=== PATIENT | female | born 1990 | race Caucasian/White ===

== ENCOUNTER 2021-07-22 11:11 | Emergency (ER) | payer OTHER, MEDICAID, SELFPAY ==
[2021-07-22 11:25] VITALS: BP 140/73; PULSE 68; RESP 18; TEMP 36.9; O2SAT 100; BMI 22.8
--- NOTE | 2021-07-22 11:28 | ED_ITS ---
HPI - Nausea/Vomiting/Diarrhea General Chief complaint: Nausea/Vomiting/Diarrhea Stated complaint: , extreme nausea and cramping Time Seen by Provider: 07/22/21 11:18 Source: patient Mode of arrival: Ambulatory History of Present Illness HPI Narrative: 30-year-old at approximately 7 weeks EGA here for evaluation of nausea and cramping. No vaginal bleeding. Has had symptoms since the onset of this . No nausea medication at home. Attempted to smoke some marijuana earlier today to see this would help the nausea but it has not. Has an appointment scheduled with OB in a couple weeks from now. No fevers Related Data Previous Rx's Medication Instructions Recorded doxylamine 10 mg-pyridoxine (vit 2 tcp PO SEE INSTRUCTIONS #30 tab 01/26/16 B6) 10 mg tablet,delayed release (Diclegis) ondansetron 4 mg disintegrating 4 mg PO Q6-8H PRN #20 tab 07/22/21 tablet Allergies Allergy/AdvReac Type Severity Reaction Status Date / Time No Known Drug Allergies Allergy Verified 07/22/21 11:24 Review of Systems Constitutional Constitutional: Reports system reviewed and no additional complaints, except as documented Gastrointestinal Gastrointestinal: Reports as per HPI and Reports system reviewed and no additional complaints, except as documented Genitourinary Genitourinary: Reports system reviewed and no additional complaints, except as documented and Reports as per HPI Integumentary/Breasts Skin/Breast: Reports system reviewed and no additional complaints, except as doc umented Neurologic Neurologic: Reports system reviewed and no additional complaints, except as documented Hematologic/Lymphatic On Anticoagulants: No Patient History Medical History Anxiety Social History Smoking Status: Never smoker Smoking Status: Never smoker alcohol intake frequency: 0-2 drinks per day Substance Use Type: marijuana Exam Initial Vital Signs Initial Vital Signs: Vital Signs Temperature 98.4 F 07/22/21 11:25 Pulse Rate 68 07/22/21 11:25 Respiratory Rate 18 07/22/21 11:25 Blood Pressure 140/73 07/22/21 11:25 Pulse Oximetry 100 07/22/21 11:25 HENMT Head: normal to inspection and normocephalic Resp Effort & Inspection: normal respiratory effort Auscultation: clear to auscultation bilaterally Cardio Rate: regular rate Rhythm: regular rhythm GI Inspection: normal to inspection Palpation: soft and No tender Skin General: no rashes or lesions noted Neuro General: patient alert, patient awake, patient oriented x3 and moves all extremities Extrem General: normal to inspection and capillary refill normal Psych Appearance: grossly normal and well kempt Course Orders Ordered: Discontinued Medications Sodium Chloride (Normal Saline 0.9%) 1,000 mls @ 1,000 mls/hr IV BOLUS ONE Stop: 07/22/21 12:18 Last Infusion: 07/22/21 13:32 Dose: 0 mls/hr Documented by: Admin: 07/22/21 11:36 Dose: 1,000 mls/hr Documented by: DYAN Ondansetron HCl (Ondansetron 4 Mg/2 Ml Inj) 4 mg IV NOW ONE Stop: 07/22/21 11:24 Last Admin: 07/22/21 11:36 Dose: 4 mg Documented by: DYAN Vital Signs Vital signs: Vital Signs - 8 hr 07/22/21 11:25 Temperature 98.4 F Pulse Rate 68 Respiratory Rate 18 Blood Pressure 140/73 Pulse Oximetry 100 MDM - Nausea/Vomiting/Diarrhea Lab Data Result diagrams: 07/22/21 12:02 07/22/21 12:02 Labs: Lab Results 07/22/21 07/22/21 Range/Units 12:02 12:02 WBC 9.5 (4.5-11.0) X10^3/uL RBC 3.92 L (4.0-5.2) X10^6/uL Hgb 11.7 L (12.0-16.0) g/dL Hct 35.2 L (36-46) % MCV 89.9 (80-100) fL MCH 29.9 (26-34) PG MCHC 33.3 (30-36) % RDW 12.4 (11.6-14.8) % Plt Count 147 L (150-400) X10^3/uL Neut % (Auto) 74.3 (50-75) % Lymph % (Auto) 18.4 L (25-40) % Benzie % (Auto) 5.9 (3-14) % Eos % (Auto) 1.1 L (2-4) % Baso % (Auto) 0.3 (0-2) % Neut # (Auto) 7100 H (3307-2995) /uL Lymph # (Auto) 1700 (3193-4064) /uL Benzie # (Auto) 600 (0-900) /uL Eos # (Auto) 100 (0-450) /uL Baso # (Auto) 0 (0-100) /uL Sodium 136 L (137-145) mmol/L Potassium 4.1 (3.4-5.1) mmol/L Chloride 107 (98-107) mmol/L Carbon Dioxide 22 (22-32) mmol/L BUN 9 (7-17) mg/dL Creatinine 0.55 (0.52-1.04) mg/dL Estimated GFR > 60.0 (>60) mL/min BUN/Creatinine Ratio 16.4 (6-22) Glucose 113 H (70-100) mg/dL Calcium 8.7 (8.4-10.2) mg/dL Point of Care Testing Test Results Positive Urine Dip Bedside Urine Glucose Negative Bedside Urine Bilirubin - Negative Bedside Urine Ketone - Negative Urine Specific [place] 1.015 Bedside Urine Occult Blood - Negative Bedside Urine pH 6.0 Bedside Urine Protein - Negative Bedside Urine Urobilinogen - Negative Bedside Urine Nitrite - Negative Bedside Urine Leukocytes - Negative Esterase MDM Narrative Medical decision making narrative: Patient stated that she did feel better after the treatment provided here in the emergency department. She was able to tolerate oral intake. She has an ap pointment though be scheduled. Will send home with nausea medication. She was given return precautions. She expressed understanding and agreement. Discharge Plan Departure Patient Disposition: Home Clinical Impression: Vomiting affecting Instructions: DI for Vomiting -- Adult Activity Restrictions/Additional Instructions: Be sure to increase your fluid intake and eat a bland diet. Keep all of your scheduled medical appointments to include your OB appointment coming up next tue. Return to the emergency department for any new or worsening symptoms. Prescriptions: New ondansetron 4 mg tablet,disintegrating 4 mg PO Q6-8H PRN (Reason: nausea and vomiting) Qty: 20 0RF No Action doxylamine-pyridoxine (vit B6) [Diclegis] 10 MG/10 MG tablet,delayed release (DR/EC) 2 tcp PO SEE INSTRUCTIONS Qty: 30 0RF Stand Alone Forms: Work Release Note
[2021-07-22] MEDS: SODIUM CHLORIDE 0.9% 1,000 ML 1000 ML IV (11:36)
[2021-07-22] MEDS: ONDANSETRON 4 MG/2 ML INJ IV (11:36)
[2021-07-22 12:00] VITALS: BP 112/55; PULSE 55; RESP 17; O2SAT 99
[2021-07-22 12:11] LABS: Add Manual Diff / Slide Review NO; Basophils Absolute Auto 0 /uL (0-100); Basophils Percent Auto 0.3 % (0-2); Eosinophils Absolute Auto 100 /uL (0-450); Eosinophils Percent Auto 1.1 % (2-4); Hematocrit 35.2 % (36-46); Hemoglobin 11.7 g/dL (12.0-16.0); Lymphocytes Absolute Auto 1700 /uL (1100-4500); Lymphocytes Percent Auto 18.4 % (25-40); Mean Corpuscular HGB Conc 33.3 % (30-36); Mean Corpuscular Hemoglobin 29.9 PG (26-34); Mean Corpuscular Volume 89.9 fL (80-100); Monocytes Absolute Auto 600 /uL (0-900); Monocytes Percent Auto 5.9 % (3-14); Neutrophils Absolute Auto 7100 /uL (1500-7000); Neutrophils Percent Auto 74.3 % (50-75); Platelet Count 147 X10^3/uL (150-400); Red Blood Cell Count 3.92 X10^6/uL (4.0-5.2); Red Cell Distribution Width 12.4 % (11.6-14.8); White Blood Cell Count 9.5 X10^3/uL (4.5-11.0)
[2021-07-22 12:21] LABS: BUN Creatinine Ratio 16.4 (6-22); Blood Urea Nitrogen 9 mg/dL (7-17); Calcium 8.7 mg/dL (8.4-10.2); Carbon Dioxide 22 mmol/L (22-32); Chloride 107 mmol/L (98-107); Estimated Glomerular Filt Rate > 60.0 mL/min (>60); Glucose 113 mg/dL (70-100); HEMOLYSIS < 15 (0-50); Potassium 4.1 mmol/L (3.4-5.1); Sodium 136 mmol/L (137-145)
[2021-07-22 13:00] VITALS: BP 116/64; PULSE 58; RESP 20; O2SAT 100
--- NOTE | 2021-07-22 13:48 | PC.NURSE ---
Patient reports history of CHF, diabetes, and foot neuropathy. He has been feeling sick for about one week. Reports nausea, vomiting, and fever. Hx of diabetic foot ulcers. Two open wounds on his left foot are noted and cultured. Wound on dorsal side of left food is black and weeping.
[2021-07-22 14:04] VITALS: BP 112/58; PULSE 63; RESP 24; O2SAT 100
== END 2021-07-22 13:40 | disposition home or self-care (01) ==
PROVIDERS: Emergency Provider Emergency Medicine
DX: O21.9 Vomiting of pregnancy, unspecified (principal); O26.891 Other specified pregnancy related conditions, first trimester; R10.9 Unspecified abdominal pain; Z3A.01 Less than 8 weeks gestation of pregnancy
CPT/HCPCS: 36415; 80048; 81003; 81025; 85025; 96361; 96374; 99284; J2405

== ENCOUNTER 2021-08-04 17:51 | Emergency (ER) | payer OTHER, MEDICAID, SELFPAY ==
[2021-08-04 18:48] VITALS: BP 116/57; PULSE 62; RESP 16; TEMP 37.1; O2SAT 99
[2021-08-04] MEDS: ONDANSETRON 4 MG ODT SL (18:56)
--- NOTE | 2021-08-04 23:48 | PC.NURSE ---
Attempted to call pt's cell phone to come in. No answer
--- NOTE | 2021-08-04 23:56 | PC.NURSE ---
No answer again to come to beater engineer helper to get a room.
== END 2021-08-04 23:58 | disposition left against medical advice (07) ==
PROVIDERS: Emergency Provider Emergency Medicine
DX: O26.891 Other specified pregnancy related conditions, first trimester (principal); R11.0 Nausea; E86.0 Dehydration; Z3A.09 9 weeks gestation of pregnancy
CPT/HCPCS: 99283

== ENCOUNTER 2021-09-16 09:19 | Observation (INO) | payer OTHER, MEDICAID, SELFPAY ==
[2021-09-16] VITALS (15 sets, daily range): BP systolic 107–142; BP diastolic 61–96; PULSE 57–75; RESP 12–18; TEMP 36.6–37.4; O2SAT 98–100; BMI 21.9
--- NOTE | 2021-09-16 | PATH_ITS ---
[facility] Accession Number: [id number] . 01 Material submitted: . product of conception - PRODUCTS OF CONCEPTION . 02 Diagnosis: Products of Conception: Products of conception identified. V 09/21/2021 1344 Local . 02 Electronically signed: . Kalee Yang MD, Pathologist NPI- [id number] . 01 Gross description: . Received in one part. . Received in formalin, labeled DarioManda and designated products of conception, is an 8.0 x 8.0 x 1.0 cm aggregate of raymond-brown, fragmented, friable tissue fragments and hemorrhagic material. No discrete villous tissue or parts are identified. Thoracic Medicine Physician sections are submitted in cassettes A1-A3. ([id number]) /R 09/19/2021 1745 Local . 02 Pathologist provided ICD-10: O02.1 . 02 CPT . 152132 Specimen Comment: A courtesy copy of this report has been sent to [phone] Performed at: 01 [facility] Cytology [address] [facility], [place], [place] [id number] MD Michelet Huynh MD Phone: [phone] Performed at: 02 [facility] [address] [place], [place] [id number] MD Nichol Villegas MD Phone: [phone]
--- NOTE | 2021-09-16 09:24 | ED.GENADULT ---
HPI - General Adult General Chief complaint: Vaginal Bleeding Stated complaint: Vaginal Bleeding Time Seen by Provider: 09/16/21 09:20 Source: patient Mode of arrival: EMS Limitations: no limitations History of Present Illness HPI narrative: Patient is a 30-year-old female. Approximately 1 month ago underwent a elective . She states that she took a pill in order to have the . At that point she was a at approximately 7 weeks EGA. She received the Depo shot immediately afterwards. The subsequent days afterwards she states were fairly unremarkable. She did have some bleeding. No fevers. She has not had a follow-up with a provider since then. She states that all bleeding stopped and she is not had any issues until this morning. She was standing in the shower. She had a sudden onset of very heavy vaginal bleeding. Also had some lightheadedness. No abdominal cramping. No fevers. No vomiting. No urinary symptoms. No change in bowel habits. Not on blood thinners. States that this is approximately the time that she would have her menstrual cycle. She started having light spotting 4 days ago however it significantly worsened today. Related Data Previous Rx's Medication Instructions Recorded doxylamine 10 mg-pyridoxine (vit 2 tcp PO SEE INSTRUCTIONS #30 tab 01/26/16 B6) 10 mg tablet,delayed release (Diclegis) ondansetron 4 mg disintegrating 4 mg PO Q6-8H PRN #20 tab 07/22/21 tablet Allergies Allergy/AdvReac Type Severity Reaction Status Date / Time No Known Drug Allergies Allergy Verified 07/22/21 11:24 Review of Systems Review of Systems ROS Unobtainable: All systems reviewed & are unremarkable except as noted in HPI and below Patient History Medical History (Updated 09/16/21 @ 13:17 by Darryn Snyder MD) Anxiety Surgical History (Updated 09/16/21 @ 13:13 by Darryn Snyder MD) History of heart surgery Family History (Updated 09/16/21 @ 13:14 by Darryn Snyder MD) Grandmother Diabetes mellitus Social History (Updated 09/16/21 @ 13:14 by Darryn Snyder MD) household members: spouse Smoking Status: Never smoker alcohol intake: current substance use type: marijuana Smoking Status: Never smoker alcohol intake frequency: 0-2 drinks per day Substance Use Type: marijuana Exam Initial Vital Signs Initial Vital Signs: Vital Signs Temperature 98.7 F 09/16/21 09:31 Pulse Rate 59 L 09/16/21 09:31 Respiratory Rate 18 09/16/21 09:31 Blood Pressure 142/96 H 09/16/21 09:31 Pulse Oximetry 100 09/16/21 09:31 Const General: cooperative, comfortable and well developed [facility] Head: normal to inspection and normocephalic Resp Effort & Inspection: normal respiratory effort Cardio Rate: bradycardic GI Inspection: normal to inspection Other: With photocopying equipment mechanic at bedside a pelvic exam was performed. External genitalia is unremarkable. She does have blood in the vaginal vault it does appear to be coming from the cervix. There are no other lesions. Skin General: no rashes or lesions noted Neuro General: patient alert, patient awake, patient oriented x3 and moves all extremities Extrem General: normal to inspection and capillary refill normal Psych Appearance: grossly normal and well kempt Course Orders Ordered: ED Orders 09/16/21 09:30 ABO RH Type Stat Basic Metabolic Panel Stat Complete Blood Count AUTO DIFF Stat 09/16/21 10:29 US pelvic complete Stat 09/16/21 11:46 COVID19 -Nasal swab/Pre-Proc Stat Urinalysis and Microscopic Stat 09/16/21 12:35 Consult to Physician Stat Sodium Chloride (Normal Saline 0.9%) 1,000 mls @ 125 mls/hr IV CONT LILIANE Last Admin: 09/16/21 11:40 Dose: 125 mls/hr Documented by: AME Lactated Ringer's (Lactated Ringers) 1,000 mls @ 42 mls/hr IV NOW ONE Stop: 09/17/21 13:14 Last Admin: 09/16/21 13:27 Dose: 42 mls/hr Documented by: QIAN Discontinued Medications Lorazepam (Lorazepam 2 Mg/Ml Inj) 0.5 mg IV NOW ONE Stop: 09/16/21 11:27 Last Admin: 09/16/21 11:40 Dose: 0.5 mg Documented by: AME Vital Signs Vital signs: Vital Signs - 8 hr 09/16/21 09:31 09/16/21 09:35 09/16/21 10:00 Temperature 98.7 F Pulse Rate 59 L 57 L 61 Respiratory Rate 18 18 18 Blood Pressure 142/96 H 126/78 Pulse Oximetry 100 99 100 09/16/21 10:30 09/16/21 11:00 Temperature Pulse Rate 62 59 L Respiratory Rate 18 18 Blood Pressure 126/81 132/71 Pulse Oximetry 100 100 Medical Decision Making Lab Data Lab results reviewed: Yes I reviewed the patient's lab results. Result diagrams: 09/16/21 09:30 09/16/21 09:30 Labs: Lab Results 09/16/21 09/16/21 09/16/21 Range/Units 09:30 09:30 09:30 WBC 7.7 (4.5-11.0) X10^3/uL RBC 4.24 (4.0-5.2) X10^6/uL Hgb 13.0 (12.0-16.0) g/dL Hct 37.7 (36-46) % MCV 88.9 (80-100) fL MCH 30.6 (26-34) PG MCHC 34.4 (30-36) % RDW 13.0 (11.6-14.8) % Plt Count 175 (150-400) X10^3/uL Neut % (Auto) 64.4 (50-75) % Lymph % (Auto) 28.0 (25-40) % [place] % (Auto) 5.3 (3-14) % Eos % (Auto) 1.8 L (2-4) % Baso % (Auto) 0.5 (0-2) % Neut # (Auto) 5000 (5961-1984) /uL Lymph # (Auto) 2200 (4191-5890) /uL [place] # (Auto) 400 (0-900) /uL Eos # (Auto) 100 (0-450) /uL Baso # (Auto) 0 (0-100) /uL Sodium 140 (137-145) mmol/L Potassium 4.5 (3.4-5.1) mmol/L Chloride 112 H (98-107) mmol/L Carbon Dioxide 20 L (22-32) mmol/L BUN 7 (7-17) mg/dL Creatinine 0.65 (0.52-1.04) mg/dL Estimated GFR > 60.0 (>60) mL/min BUN/Creatinine Ratio 10.8 (6-22) Glucose 100 (70-100) mg/dL Calcium 9.1 (8.4-10.2) mg/dL Urine Color Urine Appearance Urine pH (4.5-8.0) Ur Specific [place] (1.000-1.035) Urine Protein (Negative) Urine Glucose (UA) (Negative) g/dL Urine Ketones (NEGATIVE) Urine Occult Blood (Negative) Urine Nitrate (Negative) Urine Bilirubin (NEGATIVE) Urine Urobilinogen (0.2) E.U./dL Ur Leukocyte Esterase (NEGATIVE) Urine RBC (0-5/HPF) Urine WBC (0-5/HPF) Ur Squamous Epith Cells (0-5/HPF) Urine Bacteria (None) Ur Culture Indicated? SARS-CoV-2 (PCR) (Negative) Blood Type A Positive 09/16/21 09/16/21 Range/Units 11:46 11:46 WBC (4.5-11.0) X10^3/uL RBC (4.0-5.2) X10^6/uL Hgb (12.0-16.0) g/dL Hct (36-46) % MCV (80-100) fL MCH (26-34) PG MCHC (30-36) % RDW (11.6-14.8) % Plt Count (150-400) X10^3/uL Neut % (Auto) (50-75) % Lymph % (Auto) (25-40) % [place] % (Auto) (3-14) % Eos % (Auto) (2-4) % Baso % (Auto) (0-2) % Neut # (Auto) (1472-3513) /uL Lymph # (Auto) (2358-0961) /uL [place] # (Auto) (0-900) /uL Eos # (Auto) (0-450) /uL Baso # (Auto) (0-100) /uL Sodium (137-145) mmol/L Potassium (3.4-5.1) mmol/L Chloride (98-107) mmol/L Carbon Dioxide (22-32) mmol/L BUN (7-17) mg/dL Creatinine (0.52-1.04) mg/dL Estimated GFR (>60) mL/min BUN/Creatinine Ratio (6-22) Glucose (70-100) mg/dL Calcium (8.4-10.2) mg/dL Urine Color Yellow Urine Appearance Clear Urine pH 7.0 (4.5-8.0) Ur Specific [place] 1.015 (1.000-1.035) Urine Protein Negative (Negative) Urine Glucose (UA) Negative (Negative) g/dL Urine Ketones Negative (NEGATIVE) Urine Occult Blood Trace-lysed (Negative) Urine Nitrate Negative (Negative) Urine Bilirubin Negative (NEGATIVE) Urine Urobilinogen 0.2 (0.2) E.U./dL Ur Leukocyte Esterase Negative (NEGATIVE) Urine RBC 0-1/hpf (0-5/HPF) Urine WBC 0-1/hpf (0-5/HPF) Ur Squamous Epith Cells 0-1 /hpf (0-5/HPF) Urine Bacteria None seen (None) Ur Culture Indicated? Cult not indicated SARS-CoV-2 (PCR) Negative (Negative) Blood Type Imaging Data US - [facility] FORMER: Radiologist's Impression: [address] [address] Ultrasound Report Signed Patient: Manda Bishop MR#: [id number] : 1990 Acct:[id number] Age/Sex: 30 / F Date of Service: 09/16/21 Loc: ED Accession Number: [id number] ?? Procedure: US pelvic complete Ordering Provider: Josué Cornell D.O. PROCEDURE:? US PELVIC COMPLETE ? INDICATIONS:? Elective 4 weeks ago with increasing bleeding ? TECHNIQUE:? Real-time scanning was performed of the pelvic organs, with image documentation.? Additional endovaginal scanning was necessary due to incomplete visualization of the adnexal and endometrial structures by transabdominal scanning.? ? COMPARISON:? formerly [facility], PELVIC COMPLETE, 01/26/2016, 16:27. ? FINDINGS:? ?? Uterus:? Uterus is anteverted and normal in size at 9.8 x 5.7 x 6.1 cm. The myometrium is homogeneous. ? ? The endometrial stripe is abnormally thickened and demonstrates a heterogeneous focus along the fundus that measures 3.3 x 4.6 x 2.8 cm.? Portions of this abnormal material are hypervascular. ? Ovaries:? The right ovary measures 2.7 x 2.2 x 2 cm. The left ovary measures 2.7 x 2.1 x 1.2 cm. The ovaries have a normal sonographic appearance.? No adnexal masses are seen. ? Other:? No pathologic free abdominal or pelvic fluid. ? ? IMPRESSION:? High imaging concern for retained products of conception, with a heterogeneous mass within the fundus of the uterus, portions of which are hypervascular. ? Gynecology consultation is recommended. ? We strive to produce accurate, complete, and clear reports of imaging services. To assist us in improving patient care, this report was composed using standard report templates and voice recognition software. Therefore, it may contain abnormal punctuation, insertions and/or omissions. Occasional wrong-word or sound-alike substitutions may occur. Though we review the report and make efforts to correct it, we do recommend that the report be read carefully in proper context to recognize any text inaccuracies. ? ? Dictated by: Willian Slade M.D. on 09/16/2021 at 9:38 ? ? Approved by: Willian Slade M.D. on 09/16/2021 at 9:40 MDM Narrative Medical decision making narrative: Patient does have bleeding from the cervix. Ultrasound consistent with retained products of conception. Patient not anemic. No indication for transfusion. Discussed case with Dr. Snyder on-call with hotel office manager. I did present options to include another dose of medication verses D& C. Patient opted for D&C. Doctor was not evaluated emergency department and will take for surgical intervention. Discharge Plan Departure Patient Disposition: Admitted to Surgery Clinical Impression: Vaginal bleeding, Retained products of conception Admit Date/Time: 09/16/21 12:58 Admit Provider: Darryn Snyder
[2021-09-16 09:39] LABS: Add Manual Diff / Slide Review NO; Basophils Absolute Auto 0 /uL (0-100); Basophils Percent Auto 0.5 % (0-2); Eosinophils Absolute Auto 100 /uL (0-450); Eosinophils Percent Auto 1.8 % (2-4); Hematocrit 37.7 % (36-46); Lymphocytes Absolute Auto 2200 /uL (1100-4500); Mean Corpuscular HGB Conc 34.4 % (30-36); Mean Corpuscular Hemoglobin 30.6 PG (26-34); Mean Corpuscular Volume 88.9 fL (80-100); Monocytes Absolute Auto 400 /uL (0-900); Monocytes Percent Auto 5.3 % (3-14); Neutrophils Absolute Auto 5000 /uL (1500-7000); Neutrophils Percent Auto 64.4 % (50-75); Platelet Count 175 X10^3/uL (150-400); Red Blood Cell Count 4.24 X10^6/uL (4.0-5.2); White Blood Cell Count 7.7 X10^3/uL (4.5-11.0)
[2021-09-16 09:50] LABS: BUN Creatinine Ratio 10.8 (6-22); Blood Urea Nitrogen 7 mg/dL (7-17); Calcium 9.1 mg/dL (8.4-10.2); Carbon Dioxide 20 mmol/L (22-32); Chloride 112 mmol/L (98-107); Estimated Glomerular Filt Rate > 60.0 mL/min (>60); Glucose 100 mg/dL (70-100); HEMOLYSIS < 15 (0-50); Potassium 4.5 mmol/L (3.4-5.1); Sodium 140 mmol/L (137-145)
--- NOTE | 2021-09-16 10:29 | DI.US.S_ITS ---
PROCEDURE: US PELVIC COMPLETE INDICATIONS: Elective 4 weeks ago with increasing bleeding TECHNIQUE: Real-time scanning was performed of the pelvic organs, with image documentation. Additional endovaginal scanning was necessary due to incomplete visualization of the adnexal and endometrial structures by transabdominal scanning. COMPARISON: [facility], , PELVIC COMPLETE, 01/26/2016, 16:27. FINDINGS: Uterus: Uterus is anteverted and normal in size at 9.8 x 5.7 x 6.1 cm. The myometrium is homogeneous. The endometrial stripe is abnormally thickened and demonstrates a heterogeneous focus along the fundus that measures 3.3 x 4.6 x 2.8 cm. Portions of this abnormal material are hypervascular. Ovaries: The right ovary measures 2.7 x 2.2 x 2 cm. The left ovary measures 2.7 x 2.1 x 1.2 cm. The ovaries have a normal sonographic appearance. No adnexal masses are seen. Other: No pathologic free abdominal or pelvic fluid. IMPRESSION: High imaging concern for retained products of conception, with a heterogeneous mass within the fundus of the uterus, portions of which are hypervascular. Gynecology consultation is recommended. We strive to produce accurate, complete, and clear reports of imaging services. To assist us in improving patient care, this report was composed using standard report templates and voice recognition software. Therefore, it may contain abnormal punctuation, insertions and/or omissions. Occasional wrong-word or sound-alike substitutions may occur. Though we review the report and make efforts to correct it, we do recommend that the report be read carefully in proper context to recognize any text inaccuracies. Dictated by: Willian Slade M.D. on 09/16/2021 at 9:38 Approved by: Willian Slade M.D. on 09/16/2021 at 9:40
[2021-09-16] MEDS: LORazepam 2 MG/ML INJ 0.5 MG IV (11:40)
[2021-09-16] MEDS: SODIUM CHLORIDE 0.9% 1,000 ML 125 ML IV (11:40)
--- NOTE | 2021-09-16 11:59 | PC.NURSE ---
Pts mother at the bedside.
[2021-09-16 12:02] LABS: Appearance Urine UA CLEAR; Bilirubin Urine UA NEGATIVE (NEGATIVE); Color Urine UA YELLOW; Glucose Urine UA NEGATIVE (Negative); Ketones Urine UA NEGATIVE (NEGATIVE); Leukocyte Esterase Urine UA NEGATIVE (NEGATIVE); Nitrite Urine UA NEGATIVE (Negative); Occult Blood Urine UA TRACE-LYSED (Negative); Protein Urine UA NEGATIVE (Negative); Specific Gravity Urine UA 1.015 (1.000-1.035); Urobilinogen Urine UA 0.2 E.U./dL (0.2)
[2021-09-16 12:13] LABS: COVID19 -Nasal RAPID Negative (Negative)
[2021-09-16 12:36] LABS: Bacteria Urine None Seen; Culture Indicated Urine Cult Not Indicated; RBC Urine 0-1/HPF (0-5/HPF); Squamous Epithelial Cell Urine 0-1 /HPF (0-5/HPF); WBC Urine 0-1/HPF (0-5/HPF)
--- NOTE | 2021-09-16 13:07 | PM.GYNHP.1 ---
History of Present Illness History of Present Illness Reason for admission: vaginal bleeding and incomplete Narrative: Manda Bishop is a 30 year consultation A2 who in early July had a medical termination of an early 7 week with to medications. No records of that treatment are available for review at this time. Patient experienced what she thought was complete evacuation within the ensuing 18-24 hours and 4 days ago began what she thought was her 1st spontaneous menses. Patient received Depo-Provera the time of her termination as well. Unfortunately her bleeding which started out as moderate today suddenly became extremely severe and was associated with some cramping and passage of large clots. Evaluation in the emergency department at [facility] included a pelvic ultrasound which showed: FINDINGS:? ?? Uterus:? Uterus is anteverted and normal in size at 9.8 x 5.7 x 6.1 cm. The myometrium is homogeneous. ? ? The endometrial stripe is abnormally thickened and demonstrates a heterogeneous focus along the fundus that measures 3.3 x 4.6 x 2.8 cm.? Portions of this abnormal material are hypervascular. ? Ovaries:? The right ovary measures 2.7 x 2.2 x 2 cm. The left ovary measures 2.7 x 2.1 x 1.2 cm. The ovaries have a normal sonographic appearance.? No adnexal masses are seen. ? Other:? No pathologic free abdominal or pelvic fluid. ? ? IMPRESSION:? High imaging concern for retained products of conception, with a heterogeneous mass within the fundus of the uterus, portions of which are hypervascular. ? Gynecology consultation is recommended. Blood type is A positive. Last p.o. intake 8:00 p.m. 09/15/2021. [facility] Medical History (Updated 09/16/21 @ 13:17 by Darryn Snyder MD) Anxiety Surgical History (Updated 09/16/21 @ 13:13 by Darryn Snyder MD) History of heart surgery Family History (Updated 09/16/21 @ 13:14 by Darryn Snyder MD) Grandmother Diabetes mellitus Social History (Updated 09/16/21 @ 13:14 by Darryn Snyder MD) Smoking Status: Never smoker alcohol intake: current substance use type: marijuana Meds Home Medications and Allergies Home Medications Medication Instructions Recorded Confirmed Type doxylamine 10 mg-pyridoxine (vit 2 tcp PO SEE INSTRUCTIONS #30 tab 01/26/16 Rx B6) 10 mg tablet,delayed release (Diclegis) ondansetron 4 mg disintegrating 4 mg PO Q6-8H PRN #20 tab 07/22/21 Rx tablet Allergies Allergy/AdvReac Type Severity Reaction Status Date / Time No Known Drug Allergies Allergy Verified 07/22/21 11:24 Review of Systems Review of Systems Narrative: Problem-specific ROS positives included in HPI Exam Vital Signs (past 8 hours): - 09/16/21 09:31 09/16/21 09:35 09/16/21 10:00 Temperature 98.7 F Pulse Rate 59 L 57 L 61 Respiratory Rate 18 18 18 Blood Pressure 142/96 H 126/78 Pulse Oximetry 100 99 100 09/16/21 10:30 09/16/21 11:00 Temperature Pulse Rate 62 59 L Respiratory Rate 18 18 Blood Pressure 126/81 132/71 Pulse Oximetry 100 100 Oxygen Delivery Method Room Air Const General: cooperative, comfortable, well developed and in distress Nutritional Appearance: average body habitus Orientation: alert and oriented x3 HENMT Head: normal to inspection, normocephalic and atraumatic Ears: hearing grossly normal bilaterally Face and sinus: face symmetric Eyes General: appearance normal, both eyes and all related structures Conjunctivae: conjunctivae normal Sclera: sclerae normal EOM: EOM intact bilaterally Neck Neck: normal visual inspection Resp Effort & Inspection: normal respiratory effort and able to speak in complete sentences Auscultation: clear to auscultation bilaterally Cardio Rate: regular rate Rhythm: regular rhythm Heart Sounds: S1 normal, S2 normal and no murmurs GI Inspection: normal to inspection Palpation: soft, no hepatosplenomegaly and No tender External Female Exam: normal external appearance and normal appearance of the urethra Speculum Exam - Vagina: normal appearance of the vagina and other (BRB PV) Speculum Exam - Cervix: normal appearance of the cervix, cervical os open and other (BRB per os) Bimanual Exam- Vagina & Uterus: normal bimanual exam, enlarged (6 weeks), soft and tender (Mild) Bimanual Exam- Adnexa, other: normal adnexae, no masses and non-tender OB/External & Speculum: cervical os open Extrem General: no calf tenderness Psych Appearance: grossly normal Mental Status: mental status grossly normal Speech and Movement: speech and movement normal Mood: congruent mood Affect: normal affect Attitude: cooperative Thought Process: normal Thought Content: normal Judgment: judgment good Objective Labs Result Diagrams: 09/16/21 09:30 09/16/21 09:30 Labs: Laboratory Results - last 24 hr 09/16/21 09/16/21 09/16/21 09:30 09:30 09:30 WBC 7.7 RBC 4.24 Hgb 13.0 Hct 37.7 MCV 88.9 MCH 30.6 MCHC 34.4 RDW 13.0 Plt Count 175 Neut % (Auto) 64.4 Lymph % (Auto) 28.0 [place] % (Auto) 5.3 Eos % (Auto) 1.8 L Baso % (Auto) 0.5 Neut # (Auto) 5000 Lymph # (Auto) 2200 [place] # (Auto) 400 Eos # (Auto) 100 Baso # (Auto) 0 Sodium 140 Potassium 4.5 Chloride 112 H Carbon Dioxide 20 L BUN 7 Creatinine 0.65 Estimated GFR > 60.0 BUN/Creatinine Ratio 10.8 Glucose 100 Calcium 9.1 Urine Color Urine Appearance Urine pH Ur Specific [place] Urine Protein Urine Glucose (UA) Urine Ketones Urine Occult Blood Urine Nitrate Urine Bilirubin Urine Urobilinogen Ur Leukocyte Esterase Urine RBC Urine WBC Ur Squamous Epith Cells Urine Bacteria Ur Culture Indicated? SARS-CoV-2 (PCR) Blood Type A Positive 09/16/21 09/16/21 11:46 11:46 WBC RBC Hgb Hct MCV MCH MCHC RDW Plt Count Neut % (Auto) Lymph % (Auto) [place] % (Auto) Eos % (Auto) Baso % (Auto) Neut # (Auto) Lymph # (Auto) [place] # (Auto) Eos # (Auto) Baso # (Auto) Sodium Potassium Chloride Carbon Dioxide BUN Creatinine Estimated GFR BUN/Creatinine Ratio Glucose Calcium Urine Color Yellow Urine Appearance Clear Urine pH 7.0 Ur Specific [place] 1.015 Urine Protein Negative Urine Glucose (UA) Negative Urine Ketones Negative Urine Occult Blood Trace-lysed Urine Nitrate Negative Urine Bilirubin Negative Urine Urobilinogen 0.2 Ur Leukocyte Esterase Negative Urine RBC 0-1/hpf Urine WBC 0-1/hpf Ur Squamous Epith Cells 0-1 /hpf Urine Bacteria None seen Ur Culture Indicated? Cult not indicated SARS-CoV-2 (PCR) Negative Blood Type Assessment & Plan Assessment and plan (1) Retained products of conception: Status: Acute (2) Incomplete : Status: Acute Plan Options reviewed with the patient including expectant management, a 2nd dose of medication to induce expulsion of retained POCs, or suction curettage of the uterus. Patient after considering all options has opted for dilation and suction curettage of the uterus. She was counseled regarding alternatives, risks, benefits, and potential complications associated with dilation and suction curettage of the uterus and we are proceeding at this time with her procedure. Time Spent With Patient Time with patient: less than 30 minutes
--- NOTE | 2021-09-16 13:19 | PM.PREOP ---
Pre-operative Note COVID-19 COVID-19 status: Negative Result date/Date tested (Pos, Neg/Pending): 09/16/21 Criteria for continued procedure: Non-surgical alternatives not available or appropriate per current SOC Interval Note History & Physical reviewed/Exam performed by Physician: Yes Changes to H&P: No
[2021-09-16] MEDS: LACTATED RINGERS 1,000 ML 42 ML IV (13:27)
[2021-09-16] MEDS: CEFAZOLIN 2 GM/20 ML SYRINGE IV (13:39)
--- NOTE | 2021-09-16 13:47 | SUR.OPER ---
Lithotomy on padded OR bed, head on pillow, arms secured on padded arm boards at <90 degrees abduction. Legs secured in padded yellow fins stirrups.
--- NOTE | 2021-09-16 13:52 | P.OP_ITS ---
Operative Date/Time/Diagnoses Date of procedure: 09/16/21 Time of procedure: 13:45 Pre-op diagnosis: Incomplete Retained products of conception following medical termination of Post-op diagnosis: same Procedure & Clinicians Procedure: Procedures Operation Date: 09/16/21 13:45 Actual Procedure Side Surgeon Dilation and suction curettage of the uterus Darryn Snyder MD Indications: Manda Bishop is a 30 year consultation A2 who in early July had a medical termination of an early 7 week with to medications.? No records of that treatment are available for review at this time.? Patient experienced what she thought was complete evacuation within the ensuing 18-24 hours and 4 days ago began what she thought was her 1st spontaneous menses.? Patient received Depo-Provera the time of her termination as well.? Unfortunately her bleeding which started out as moderate today suddenly became extremely severe and was associated with some cramping and passage of large clots.? Evaluation in the emergency department at [facility] included a pelvic ultrasound which showed: FINDINGS:? ?? Uterus:? Uterus is anteverted and normal in size at 9.8 x 5.7 x 6.1 cm. The myometrium is homogeneous. ? ? The endometrial stripe is abnormally thickened and demonstrates a heterogeneous focus along the fundus that measures 3.3 x 4.6 x 2.8 cm.? Portions of this abnormal material are hypervascular. ? Ovaries:? The right ovary measures 2.7 x 2.2 x 2 cm. The left ovary measures 2.7 x 2.1 x 1.2 cm. The ovaries have a normal sonographic appearance.? No adnexal masses are seen. ? Other:? No pathologic free abdominal or pelvic fluid. ? ? IMPRESSION:? High imaging concern for retained products of conception, with a heterogeneous mass within the fundus of the uterus, portions of which are hypervascular. ? Gynecology consultation is recommended. Blood type is A positive.? Last p.o. intake 8:00 p.m. 09/15/2021. Surgeon: Darryn Snyder Anesthesia Type: General Operative Notes Findings: Abundant necrotic products of conception within the uterine cavity which measures 10 cm in depth. Closure Type: not applicable Specimen(s): products of conception Estimated blood loss (mL): 25 Blood products transfused: none Procedure in detail: With the patient under satisfactory general anesthesia in the modified dorsal lithotomy position, the perineum, vagina, and lower abdomen were prepped and draped in the usual fashion for suction curettage. A pre-surgical safety time- out was then taken in accordance with [facility] OR protocols. A speculum was placed in the vagina and the anterior lip of the cervix grasped with a ring forcep. The endocervical canal was easily dilated to 8 mm with Hegar dilators and a 7 mm suction curette was introduced into the endometrial cavity. Using suction curettage, abundant amounts of necrotic products of conception were removed from within the endometrial cavity and submitted as an aggregate pathologic specimen. Gentle sharp curettage was then accomplished to be certain that there were no further retained products and complete evacuation of the uterus was confirmed. The ring forcep was then removed from the anterior lip of the cervix and the speculum removed from the vagina. Patient was then awakened from anesthesia and transferred to the PACU for a period of observation and recovery having tolerated the procedure well. Complications: none Post-operative Condition: stable Disposition: PACU Plan for aftercare: Routine postoperative care with plans for follow-up visit in 2 weeks. Oral doxycycline 100 mg p.o. b.i.d. x7 days. OTC Ibuprofen/acetaminophen for postoperative cramping Written post surgical instructions provided
--- NOTE | 2021-09-16 13:59 | PM.CN ---
History of Present Illness Consult details Date Patient Seen: 09/16/21 Time Patient Seen: 12:15 Chief complaint: Vaginal Bleeding Reason for consult: Vaginal bleeding, retained products of conception Requesting provider: Josué Cornell Narrative: Patient is a 30-year-old who underwent a medical termination of a 7 week gestation in early July 2021. She had what she thought was complete evacuation of the uterus following medication and became amenorrheic after several days but began bleeding 4 days ago and had a heavy gush of blood on the morning of 09/16/2021. She presented to the emergency department at [facility] and as part of her workup, a pelvic ultrasound showed findings consistent with significant retained products of conception. After counseling regarding all options the patient has opted for cervical dilation with suction curettage of the uterus for evacuation of retained products of conception. Meds Home Medications and Allergies Allergies Allergy/AdvReac Type Severity Reaction Status Date / Time No Known Drug Allergies Allergy Verified 09/30/21 14:23 Review of Systems Review of Systems Narrative: Problem-specific ROS positives included with the HPI Exam Vital Signs (past 8 hours): - 09/16/21 09:31 09/16/21 09:35 09/16/21 10:00 Temperature 98.7 F Pulse Rate 59 L 57 L 61 Respiratory Rate 18 18 18 Blood Pressure 142/96 H 126/78 Pulse Oximetry 100 99 100 09/16/21 10:30 09/16/21 11:00 09/16/21 13:00 Temperature Pulse Rate 62 59 L 73 Respiratory Rate 18 18 Blood Pressure 126/81 132/71 132/68 Pulse Oximetry 100 100 100 09/16/21 13:16 Temperature 99.3 F Pulse Rate 69 Respiratory Rate 16 Blood Pressure 135/77 Pulse Oximetry 99 Oxygen Delivery Method Room Air Const General: cooperative and in distress (Due to bleeding and discomfort) Nutritional Appearance: average body habitus Orientation: alert and oriented x3 HENMT Head: normal to inspection Ears: hearing grossly normal bilaterally Face and sinus: face symmetric Eyes General: appearance normal, both eyes and all related structures Conjunctivae: conjunctivae normal Sclera: sclerae normal EOM: EOM intact bilaterally Neck Neck: normal visual inspection Resp Effort & Inspection: normal respiratory effort Auscultation: clear to auscultation bilaterally Cardio Rate: regular rate Rhythm: regular rhythm Heart Sounds: S1 normal, S2 normal and no murmurs GI Inspection: normal to inspection Palpation: soft, no hepatosplenomegaly and tender (Very mild, bilateral lower quadrant discomfort with palpation) External Female Exam: normal external appearance Speculum Exam - Vagina: normal appearance of the vagina, abnormal vaginal discharge (Dark and bright red blood), no lesions and No tissue present in vagina Speculum Exam - Cervix: cervical os open Bimanual Exam- Vagina & Uterus: enlarged (6-8 weeks), soft and tender (Mild) Bimanual Exam- Adnexa, other: normal adnexae and no masses OB/External & Speculum: no tissue noted in vagina and cervical os open Psych Appearance: grossly normal Mental Status: mental status grossly normal Speech and Movement: speech and movement normal Mood: congruent mood Affect: normal affect Attitude: cooperative Thought Process: normal Thought Content: normal Objective Labs Result Diagrams: 09/16/21 09:30 09/16/21 09:30 Labs: Laboratory Results - last 24 hr 09/16/21 09/16/21 09/16/21 09:30 09:30 09:30 WBC 7.7 RBC 4.24 Hgb 13.0 Hct 37.7 MCV 88.9 MCH 30.6 MCHC 34.4 RDW 13.0 Plt Count 175 Neut % (Auto) 64.4 Lymph % (Auto) 28.0 [place] % (Auto) 5.3 Eos % (Auto) 1.8 L Baso % (Auto) 0.5 Neut # (Auto) 5000 Lymph # (Auto) 2200 [place] # (Auto) 400 Eos # (Auto) 100 Baso # (Auto) 0 Sodium 140 Potassium 4.5 Chloride 112 H Carbon Dioxide 20 L BUN 7 Creatinine 0.65 Estimated GFR > 60.0 BUN/Creatinine Ratio 10.8 Glucose 100 Calcium 9.1 Urine Color Urine Appearance Urine pH Ur Specific [place] Urine Protein Urine Glucose (UA) Urine Ketones Urine Occult Blood Urine Nitrate Urine Bilirubin Urine Urobilinogen Ur Leukocyte Esterase Urine RBC Urine WBC Ur Squamous Epith Cells Urine Bacteria Ur Culture Indicated? SARS-CoV-2 (PCR) Blood Type A Positive 09/16/21 09/16/21 11:46 11:46 WBC RBC Hgb Hct MCV MCH MCHC RDW Plt Count Neut % (Auto) Lymph % (Auto) [place] % (Auto) Eos % (Auto) Baso % (Auto) Neut # (Auto) Lymph # (Auto) [place] # (Auto) Eos # (Auto) Baso # (Auto) Sodium Potassium Chloride Carbon Dioxide BUN Creatinine Estimated GFR BUN/Creatinine Ratio Glucose Calcium Urine Color Yellow Urine Appearance Clear Urine pH 7.0 Ur Specific [place] 1.015 Urine Protein Negative Urine Glucose (UA) Negative Urine Ketones Negative Urine Occult Blood Trace-lysed Urine Nitrate Negative Urine Bilirubin Negative Urine Urobilinogen 0.2 Ur Leukocyte Esterase Negative Urine RBC 0-1/hpf Urine WBC 0-1/hpf Ur Squamous Epith Cells 0-1 /hpf Urine Bacteria None seen Ur Culture Indicated? Cult not indicated SARS-CoV-2 (PCR) Negative Blood Type [facility] Medical History (Updated 10/09/21 @ 12:22 by Darryn Snyder MD) Anxiety Surgical History (Updated 09/16/21 @ 13:13 by Darryn Snyder MD) History of heart surgery Family History (Updated 09/16/21 @ 13:14 by Darryn Snyder MD) Grandmother Diabetes mellitus Social History household members: spouse Tobacco & Substance Use Smoking Status: Never smoker alcohol intake: current substance use type: marijuana Assessment & Plan Assessment and plan (1) Retained products of conception after induced termination of : Status: Acute Plan Options discussed with the patient and will move forward with dilation and suction curettage of the uterus for removal of retained products of conception. Time Spent With Patient Time with patient: 30 to 49 minutes with 50% spent counseling/coordinating care Critical Care time: I spent a total of [] minutes of critical care time on this patient's care today; this time is exclusive of procedural time.
[2021-09-16] MEDS: HYDROCODONE/ACET 5/325 TABLET 1 TAB PO (14:33)
== END 2021-09-16 15:30 | disposition home or self-care (01) ==
LOC: ED 12:57 → AC 13:11
PROVIDERS: Admitting Provider Obstetrics & Gynecology; Emergency Provider Emergency Medicine; Referring Provider Emergency Medicine; Visit Provider Obstetrics & Gynecology
PROC: (CPT 58120; principal; 2021-09-16 13:45)
DX: O04.6 Delayed or excessive hemorrhage following (induced) termination of pregnancy (principal); Z20.822 Contact with and (suspected) exposure to COVID-19
CPT/HCPCS: 59812; 36415; 76830; 76856; 80048; 81001; 85025; 86900; 86901; 87635; 96374; 99218; 99284; C9803; G0378; J0690; J1100; J1885; J2060; J2250; J2405; J2704; J3010